=== PATIENT | male | born 1985 | race Caucasian/White ===

== ENCOUNTER 2024-07-14 07:42 | Emergency (ER) | payer BC ==
[~2024-07-14] VITALS: Ht 182.9 cm; Wt 102.3 kg
[2024-07-14 07:51] VITALS: BP 156/90; TEMP 97.6
[2024-07-14] MEDS ORDERED: CLEOCIN HCL300 MG PO (08:16)
[2024-07-14] MEDS ORDERED: PERCOCET 325 MG1 TA2 PO (08:16)
[2024-07-14] MEDS ORDERED: cefTRIAXone 1 G,Lidocaine PF 1% 2.1 ML IM ONE (08:45)
[2024-07-14 09:01] VITALS: PULSE 79
== END 2024-07-14 09:02 | disposition home or self-care (01) ==
LOC: COL.ER 07:42
DX: K61.1 Rectal abscess (principal); Z88.0 Allergy status to penicillin
CPT/HCPCS: J0696